=== PATIENT | male | born 1945 | race Caucasian/White ===

== ENCOUNTER → 2024-09-04 08:55 | Outpatient (REF) | payer MEDICARE, SELFPAY | LOC: RAD 08:55 | PROVIDERS: ATTENDING PHYSICIAN Internal Medicine Hematology & Oncology; FAMILY PHYSICIAN Family Medicine | DX: C61 Malignant neoplasm of prostate (principal); C79.51 Secondary malignant neoplasm of bone; M87.180 Osteonecrosis due to drugs, jaw; D50.9 Iron deficiency anemia, unspecified | CPT/HCPCS: 74177; 78306; A9503; Q9967 ==